=== PATIENT | male | born 1965 | race Caucasian/White ===

== ENCOUNTER → 2021-09-26 | Outpatient (CLI) | payer OTHER ==
--- NOTE | 2021-09-26 13:27 | RAD ---
EXAMINATION: XR ELBOW COMPLETE_LEFT 3+VIEWS. HISTORY: 56 years Male Reason: PAINand sewlling, injury IN LEFT ELBOW. / Spl. Instructions: / Hist ory: . COMPARISON: None. FINDINGS: There is a nondisplaced fracture fragment measuring 6 mm along the medial aspect of the catheter prox imal ulna. The radius appear intact. The distal humerus appear intact. There is evidence of joint e ffusion. The joint spaces and articular surfaces appear unremarkable. IMPRESSION: Nondisplaced fracture involving the medial aspect of the proximal ulna. Electronically signed by: Baldemar Cornejo MD (09/26/2021 1:24 PM) [id number]
== END ==
LOC: RAD 11:33
PROVIDERS: ATTEND Anesthesiology
DX: S52.092A Other fracture of upper end of left ulna, initial encounter for closed fracture (principal); M25.422 Effusion, left elbow; X58.XXXA Exposure to other specified factors, initial encounter; Y93.89 Activity, other specified; Y92.89 Other specified places as the place of occurrence of the external cause; Y99.8 Other external cause status
CPT/HCPCS: 73080